=== PATIENT | female | born 1970 | race Caucasian/White ===

== ENCOUNTER 2016-07-09 15:39 | Emergency (ER) ==
--- NOTE | 2016-07-09 16:48 | PROVIDER DOCUMENTATION ---
[facility] General - General Source: patient - History of Present Illness-[facility] General [facility] Location: reports: throat Quality of Pain: reports: burning Severity: reports: moderate Onset/Duration: reports: gradual, 1 week ago, last week Timing: reports: still present, constant Prearrival Treatment: Initiated no prearrival treatment Associated Symptoms: reports: cough, fever, nasal congestion/drainage, sore throat, voice change. denies: ear drainage, facial pain/swelling, malaise Locality of Occurance: Home Similar Symptoms Previously?: No Recently seen or treated by another doctor?: No - Throat/Dental Throat/Dental Problem Symptoms: reports: sore throat <Phani Parker - Last Filed: 07/09/16 17:57> <Lianna Macario - Last Filed: 07/09/16 19:21> <Ascencion Stapleton - Last Filed: 07/09/16 20:27> - General Chief Complaint: Cold Symptoms Stated Complaint: SORE THROAT Time Seen by Provider: 07/09/16 16:34 Allergies/Adverse Reactions: Patient Allergies Allergy/AdvReac Type Severity Reaction Status Date / Time No Known Allergies Allergy Verified 07/09/16 16:19 Home Medications: Home Medication List Medication Instructions Recorded Confirmed Last Taken Type Amoxicillin/Pot Clavulanate 875 mg PO Q12HR #20 tablet 07/09/16 Unknown Rx [Augmentin] - History of Present Illness-[facility] General Nature of Presenting Problem: patient is a 45 y/o F that presents with one week of cough/congestion, sore throat, and voice changes. (Phani Parker) Review of Systems - Adult - REVIEW OF SYSTEMS - ADULT Constitutional: reports: fever. denies: chills Eyes: reports: no symptoms reported Ears, Nose, Mouth & Throat: reports: sinus problem, hoarseness, throat pain. denies: ear pain Cardiovascular: reports: no symptoms reported Respiratory: reports: cough. denies: shortness of breath, wheezing Gastrointestinal: denies: diarrhea, nausea, vomiting Genitourinary: reports: no symptoms reported Musculoskeletal: reports: no symptoms reported Integumentary: reports: no symptoms reported Neurological: reports: no symptoms reported Psychiatric: reports: no symptoms reported Endocrine: reports: no symptoms reported Hematologic/Lymphatic: reports: no symptoms reported Allergic/Immunologic: reports: no symptoms reported All Other Systems: Reviewed and Negative <Phani Parker - Last Filed: 07/09/16 17:57> Past History - Adult - PAST MEDICAL HISTORY-ADULT Review of Records: reports: Old Records Reviewed, Nursing Assessment Review, Medications Reviewed Endocrine/Immune: reports: anemia - PRIOR SURGERIES/PROCEDURES Surgical/Procedure History: reports: cholecystectomy, BTL - IMMUNIZATION STATUS Childhood Immunizations: See Nurse Assessment Flu Vaccine: See Nurse Assessment - FAMILY HISTORY Family History: reviewed, not pertinent - SOCIAL HISTORY Smoking: cigarettes, less than 1 pack/day Living Situation: family <Phani Parker - Last Filed: 07/09/16 17:57> Physical Exam- EENT - Physical Exam EENT Initial Vital Signs Reviewed: Yes General Appearance: alert, no apparent distress Eye Exam: bilateral eye: normal inspection, PERRL (d) Ear Exam: bilateral ear: canal normal, TM normal Nasal Exam: discharge. negative: foreign body Throat Exam: normal mouth inspection, voice changes Neck: full range of motion, normal inspection Respiratory: no respiratory distress, no accessory muscle use, decreased breath sounds. negative: crackles, rales, rhonchi, wheezing Cardiovascular: regular rate, rhythm, no murmur Abdominal Exam: normal bowel sounds, non tender, soft Extremity: normal range of motion, normal inspection, no pedal edema Integumentary: normal color, warm/dry Neurologic: grossly normal, no motor/sensory deficits Psych/Mental Status: normal thought content, normal thought process, oriented x 3 <Phani Parker - Last Filed: 07/09/16 17:57> Progress - XRAY 1 XRAY Study: Chest Impression: Abnormal XRAY Interpretation: atelecatasis, no pneumonia - CHANGE OF SHIFT REPORT (ED Provider) Report Given and Care Transferred to:: Time of Transfer: 18:00 Items Pending: Labs Tentative Impression of Patient: uri <Phani Parker - Last Filed: 07/09/16 17:57> - XRAY 1 XRAY: Bilateral XRAY Study: Chest (ATELECTASIS - SCALFANO) <Lianna Macario - Last Filed: 07/09/16 19:21> <Ascencion Stapleton - Last Filed: 07/09/16 20:27> - PLAN OF CARE/RESULTS Progress/Plan/Lab Results: plan of care-swabs, cxr, meds, breathing tx (Phani Parker) [address] DR [place] AT BEDSIDE, PT STATES URI X1 WEEK. PT HAS A MILDLY RED THROAT, MINIMAL DIMINISHED BREATH SOUNDS AND STATES YELLOW, GREEN, AND CLEAR SPUTUM. NO FEVER OR OTHER COMPLAINTS EXCEPT HOARSENESS TO HER VOICE. POC DISCUSSED PT APPEARED TO UNDERSTAND AND AGREE WITH TREATMENT PLAN AT THIS TIME Laboratory Tests 07/09/16 16:19 Group A Strep Rapid NEGATIVE Orders Category Date Time Status CHEST-2 VIEWS [RAD] Stat Exams 07/09/16 16:53 Draft CBC WITH DIFF [HEME] Stat Lab 07/09/16 18:[address] Stat Lab 07/09/16 16:19 Stop Req strep [DIRECT STREP PL] Stat Lab 07/09/16 16:19 Completed Acetaminophen with Codeine [Tylenol with Codeine #3] Med 07/09/16 16:53 Discontinued 1 each PO NOW ONE Albuterol 2.5MG/Ipratrop 0.5MG [Duoneb (A & A)] Med 07/09/16 16:53 Discontinued 3 ml INH NOW ONE Budesonide [Pulmicort] Med 07/09/16 19:13 Discontinued 0.5 mg INH NOW ONE Levalbuterol Neb [Xopenex Neb] Med 07/09/16 19:14 Discontinued 1.25 mg INH NOW ONE Methylprednisolone Sod Succ [Solu-Medrol] Med 07/09/16 16:53 Discontinued 125 mg IM NOW ONE Aerosol Treatments Routine Oth 07/09/16 19:14 Active Aerosol Treatments Stat Oth 07/09/16 19:14 Active Vital Signs - 24 hr 07/09/16 07/09/16 16:16 18:45 Temperature 98.6 F 98.9 F Pulse Rate 74 78 Respiratory 20 18 Rate Blood Pressure 139/073 123/85 O2 Sat by Pulse 99 96 Oximetry (Lianna Macario) Departure <Phani Parker - Last Filed: 07/09/16 17:57> <Lianna Macario - Last Filed: 07/09/16 19:21> - Departure Time of Disposition Order: 20:00 Certified Medical Emergency: Emergent <Ascencion Stapleton - Last Filed: 07/09/16 20:27> - Departure DIAGNOSIS: Upper respiratory infection Qualifiers: URI type: acute pharyngitis Pharyngitis/tonsillitis etiology: other specified organisms Qualified Code(s): J02.8 - Acute pharyngitis due to other specified organisms Disposition: HOME 01 Condition: Fair Additional Instructions: NASACORT 2 SPRAYS EACH SIDE TWICE A DAY SUDAFED 12 HOUR DECONGESTANT DELSYM FOR COUGH Prescriptions: Amoxicillin/Pot Clavulanate [Augmentin] 875 mg PO Q12HR #20 tablet Referrals: Ekaterina Goode MD [STAFF PHYSICIAN] - Attestation - Scribe Verification/Attestation Scribe:: Phani Parker Acting as Scribe for:: Kareem Ruiz Scribe documention review:: This chart was documented by a scribe and accurately reflects the service the provider performed and the decisions made by the provider. <Phani Parker - Last Filed: 07/09/16 17:57> - Scribe Verification/Attestation #2 Shift Change Time: 18:09 Scribe Name: Lianna Macario Acting as Scribe for:: Ascencion Stapleton <Lianna Macario - Last Filed: 07/09/16 19:21> Physician Attestation - Physician Attestation I, the provider, attest to the following statement:: Kareem Ruiz Physician documentation Attestation:: This documentation recorded by the scribe accurately reflects the service I personally performed and the decisions made by me. <Phani Parker - Last Filed: 07/09/16 17:57> - Physician Attestation I, the provider, attest to the following statement:: Ascencion Stapleton Physician documentation Attestation:: This documentation recorded by the scribe accurately reflects the service I personally performed and the decisions made by me. <Lianna Macario - Last Filed: 07/09/16 19:21>
[2016-07-09] MEDS ORDERED: TYLENOL WITH CODEINE #3 PO ONE (16:53)
[2016-07-09] MEDS ORDERED: DUONEB (A & A) INH ONE (16:53)
[2016-07-09] MEDS ORDERED: SOLU-MEDROL IM ONE (16:53)
--- NOTE | 2016-07-09 17:44 | Diag Imaging Result Document ---
PROCEDURE NAME: CHEST-2 VIEWS - 07/09/2016 2 VIEWS OF THE CHEST: FINDINGS: There are no previous studies. The heart size and pulmonary vascularity are within normal limits. There may be minimal subsegmental atelectasis in the right lower lobe. IMPRESSION: Atelectasis.
[2016-07-09] MEDS ORDERED: PULMICORT INH ONE (19:13)
[2016-07-09] MEDS ORDERED: XOPENEX NEB INH ONE (19:14)
[2016-07-09 19:16] LABS: MANUAL DIFF NEEDED? NO
[2016-07-09 19:21] LABS: BASO% 0.2 % (0.0-0.8); EOS% 0.8 % (0.0-10.0); HEMATOCRIT 41.2 % (37.0-47.0); HEMOGLOBIN 13.4 g/dL (12.0-16.0); IMM GRAN# 0.02 X1000 (0.0-0.04); IMM GRAN% 0.2 % (0.0-0.5); LYMPH# 3.43 X1000 (1.2-3.4); LYMPH% 28.1 % (20.5-51.1); MCH 27.9 PG (27-31); MCHC 32.5 g/dL (33-37); MCV 85.7 FL (81-99); MONO# 0.72 X1000 (0.11-0.59); MONO% 5.9 % (1.7-9.3); MPV 9.2 FL (7.4-10.4); NEUT% 64.8 % (42.2-75.2); PLT 390 X1000 (130-400); RBC 4.81 XMIL (4.2-5.4)
[2016-07-09] MEDS ORDERED: XYLOCAINE-MPF 1% INJ ONE (20:02)
[2016-07-09] MEDS ORDERED: ROCEPHIN IM ONE (20:02)
[2016-07-09 20:40] VITALS: BP 133/87
== END 2016-07-09 20:39 | disposition home or self-care (01) ==
LOC: P.ED 15:39
DX: J02.9 Acute pharyngitis, unspecified (principal); R05 Cough; R49.0 Dysphonia; R50.9 Fever, unspecified; F17.210 Nicotine dependence, cigarettes, uncomplicated; J98.11 Atelectasis
CPT/HCPCS: 71020; 85025; 87081; 87430; 87804; 94640; 94761; 96372; J0696; J2930